=== PATIENT | female | born 1940 ===

== ENCOUNTER → 2017-09-15 | Outpatient (CLI) | payer OTHER, BC | LOC: BHLMT 10:00 | PROVIDERS: ATTEND Internal Medicine Cardiovascular Disease | DX: I65.29 Occlusion and stenosis of unspecified carotid artery (principal); I10 Essential (primary) hypertension; Q21.1 Atrial septal defect; R42 Dizziness and giddiness; E78.2 Mixed hyperlipidemia | CPT/HCPCS: 93005-PO ==

== ENCOUNTER → 2018-09-16 | Outpatient (CLI) | payer OTHER | LOC: BHLMT 09:45 | PROVIDERS: ATTEND Internal Medicine Cardiovascular Disease | DX: I65.29 Occlusion and stenosis of unspecified carotid artery (principal); I63.9 Cerebral infarction, unspecified; Q21.1 Atrial septal defect; J44.9 Chronic obstructive pulmonary disease, unspecified; H83.2X9 Labyrinthine dysfunction, unspecified ear; E78.2 Mixed hyperlipidemia | CPT/HCPCS: 93005-PO ==

== ENCOUNTER → 2018-09-29 | Outpatient (CLI) | payer OTHER | LOC: BHLMT 08:30 | PROVIDERS: ATTEND Internal Medicine Cardiovascular Disease | DX: I65.23 Occlusion and stenosis of bilateral carotid arteries (principal) ==